=== PATIENT | female | born 1965 | race African-American/Black ===

== ENCOUNTER 2020-02-23 11:28 | Emergency (ER) | payer OTHER, MEDICAID ==
[~2020-02-23] VITALS: Ht 160 cm; Wt 113.4 kg
[2020-02-23 11:53] VITALS: BP 150/82
[2020-02-23] MEDS ORDERED: HYDROcodone-ACET 5/325MG TAB PO ONE (13:00)
== END 2020-02-23 13:57 | disposition home or self-care (01) ==
LOC: EDBD 11:28 → ER 11:28
DX: M79.10 Myalgia, unspecified site (principal); M54.5 Low back pain; M25.512 Pain in left shoulder; J45.909 Unspecified asthma, uncomplicated; I10 Essential (primary) hypertension; Z88.1 Allergy status to other antibiotic agents; V49.9XXA Car occupant (driver) (passenger) injured in unspecified traffic accident, initial encounter; Y93.89 Activity, other specified; Y92.89 Other specified places as the place of occurrence of the external cause; Y99.8 Other external cause status
CPT/HCPCS: 72100; 73502

== ENCOUNTER 2020-10-05 19:14 | Inpatient (IN) | payer MEDICAID ==
[~2020-10-05] VITALS: Ht 162.6 cm; Wt 102.5 kg
[2020-10-05] MEDS ORDERED: DIPHENOXYLATE W/ATROPINE 2.5 MG TAB PO ONE (20:30)
[2020-10-05] MEDS ORDERED: DexAMETHasone INJECTION 10 MG in D5W 5% 50 ML IV ONE (20:30)
[2020-10-05] MEDS ORDERED: ACETAMINOPHEN 500 MG TAB PO ONE (21:00)
[2020-10-05] MEDS ORDERED: ONDANSETRON ODT 4 MG TAB PO ONE (21:45)
[2020-10-05 22:56] LABS: Basophils # (auto) 0 10 ^3/uL (0-0.2); Eosinophils # (auto) 0 10 ^3/uL (0-0.8); Hemoglobin 11.7 g/dL (12.2-16.2); Lymphocytes # (auto) 0.6 10 ^3/uL (0.4-5.4); Monocytes # (auto) 0.4 10 ^3/uL (0-1.3); Monocytes % (auto) 6.5 % (0.0-12.0); Neutrophils # (auto) 5.4 10 ^3/uL (1.6-8.6); Platelet Count (auto) 191 10^3/uL (140-450); White Blood Cell 6.5 10^3/uL (4.4-10.8)
[2020-10-05 22:57] LABS: Basophils % (auto) 0.1 % (0.0-2.0); Hematocrit 36.6 % (36.0-46.0); Lymphocytes % (auto) 9.9 % (10.0-50.0); Mean Corpuscular Hgb Conc. 31.9 g/dL (32.0-36.0); Mean Corpuscular Volume 81.6 fL (80.0-100.0); Neutrophils % (auto) 83.5 % (37.0-80.0); Red Blood Cells 4.48 10^6/uL (4.0-5.20); Red Cell Distribution Width 16.5 % (11.8-14.3)
[2020-10-05 23:15] LABS: INR 1.03 (0.9-1.15)
[2020-10-05 23:30] LABS: Anion Gap 8 (5-15); Blood Urea Nitrogen 11 mg/dL (7-18); Calcium 8.3 mg/dL (8.5-10.1); Carbon Dioxide 23 mmol/L (21-32); Chloride 109 mmol/L (98-107); Glucose 95 mg/dL (74-106); Magnesium 2.3 mg/dL (1.6-2.6); Sodium 140 mmol/L (136-145)
[2020-10-05 23:39] LABS: Alanine Aminotransferase 45 U/L (13-56); Alkaline Phosphatase 80 U/L (45-117); Aspartate Aminotransferase 32 U/L (15-37); BUN/Creatinine Ratio 12.8; Bilirubin, Total 0.5 mg/dL (0.2-1.0); CRP High Sensitivity 7.13 mg/dL (< 0.3); GFR African American 88 mL/min; GFR Non-African American 73 mL/min; Lactate Dehydrogenase 308 U/L (84-246); Total Protein 7.6 g/dL (6.4-8.2)
[2020-10-06] MEDS ORDERED: hydrALAZINE HCL 20 MG/ML VL IV PRN (10:30)
[2020-10-06] MEDS ORDERED: REMDESIVIR PER PHARMACY IV SCH (10:30)
[2020-10-06] MEDS ORDERED: ACETAMINOPHEN 500 MG TAB PO PRN (10:30)
[2020-10-06] MEDS ORDERED: NITROGLYCERIN 0.4 MG SL TAB SL PRN (10:30)
[2020-10-06] MEDS ORDERED: MORPHINE SULF INJ 2 MG/ML SYRINGE 1ML IV PRN (10:30)
[2020-10-06] MEDS ORDERED: POTASSIUM EFFERVESENT TAB 25 MEQ PO ONE (10:30)
[2020-10-06] MEDS: DOXYCYCLINE 100MG/250ML 250 ML IV SCH (13:00)
[2020-10-06] MEDS: ALBUTEROL SULF HFA 90MCG INH 200DOSE IN SCH ×2 (15:15→22:05)
[2020-10-06] MEDS ORDERED: PANT20TA59 PO (16:02)
[2020-10-06] MEDS ORDERED: MONT10TA34 PO (16:02)
[2020-10-06] MEDS ORDERED: TOPI50TA53 PO (16:02)
[2020-10-06] MEDS ORDERED: ALBUAER3 IN (16:02)
[2020-10-06] MEDS ORDERED: OXYB5TAB61 PO (16:02)
[2020-10-06] MEDS ORDERED: HYDR-4833 PO (16:02)
[2020-10-06] MEDS ORDERED: ESCI20TA51 PO (16:02)
[2020-10-06] MEDS: ONDANSETRON HCL 4 MG/2 ML VIAL IV PRN (18:24)
[2020-10-06] MEDS ORDERED: PANT40T PO (18:25)
[2020-10-06] MEDS ORDERED: DICL1GEL50 TD (18:30)
[2020-10-06] MEDS ORDERED: ONDA-155 PO (18:30)
[2020-10-06] MEDS ORDERED: CYCL10TA6 PO (18:30)
[2020-10-06] MEDS ORDERED: ACET300T2 PO (18:30)
[2020-10-06] MEDS ORDERED: GABA100C9 PO (18:30)
[2020-10-06] MEDS ORDERED: VENL37.511 PO (18:30)
[2020-10-06] MEDS ORDERED: METH4TAB7 PO (18:30)
[2020-10-06] MEDS ORDERED: HYDR-4924 PO (18:30)
[2020-10-06] MEDS ORDERED: CLIN150C7 PO (18:30)
[2020-10-06] MEDS ORDERED: ELET20TA2 PO (18:30)
[2020-10-06] MEDS: BUDESONIDE (INHALATION) 180 MCG IH IN SCH (22:05)
[2020-10-06] MEDS: HYDROcodone-ACET 5/325MG TAB PO PRN (22:20)
[2020-10-07] VITALS (9 sets, daily range): BP systolic 110–147; BP diastolic 58–80
[2020-10-07] MEDS: DOXYCYCLINE 100MG/250ML 250 ML IV SCH ×2 (00:35→13:09)
[2020-10-07] MEDS: ACETAMINOPHEN 500 MG TAB PO PRN (01:22)
[2020-10-07] MEDS: ALBUTEROL SULF HFA 90MCG INH 200DOSE IN SCH ×3 (06:00→20:38)
[2020-10-07 06:39] LABS: Basophils # (auto) 0 10 ^3/uL (0-0.2); Basophils % (auto) 0.1 % (0.0-2.0); Eosinophils # (auto) 0 10 ^3/uL (0-0.8); Hemoglobin 11.2 g/dL (12.2-16.2); Monocytes # (auto) 0.6 10 ^3/uL (0-1.3); Neutrophils # (auto) 3.4 10 ^3/uL (1.6-8.6); White Blood Cell 4.8 10^3/uL (4.4-10.8)
[2020-10-07 06:43] LABS: Hematocrit 35.1 % (36.0-46.0); Lymphocytes # (auto) 0.9 10 ^3/uL (0.4-5.4); Lymphocytes % (auto) 17.8 % (10.0-50.0); Mean Corpuscular Hemoglobin 25.9 pg (28.0-32.0); Mean Corpuscular Hgb Conc. 31.9 g/dL (32.0-36.0); Mean Corpuscular Volume 81.4 fL (80.0-100.0); Monocytes % (auto) 12.2 % (0.0-12.0); Neutrophils % (auto) 69.9 % (37.0-80.0); Nucleated Red Blood Cells % 0.1 %; Platelet Count (auto) 206 10^3/uL (140-450); Red Blood Cells 4.31 10^6/uL (4.0-5.20); Red Cell Distribution Width 15.9 % (11.8-14.3)
[2020-10-07 07:21] LABS: Albumin 2.7 g/dL (3.4-5.0); BUN/Creatinine Ratio 22.2; Bilirubin, Total 0.4 mg/dL (0.2-1.0); Calcium 8.5 mg/dL (8.5-10.1)
[2020-10-07] MEDS: ONDANSETRON HCL 4 MG/2 ML VIAL IV PRN ×2 (09:11→17:56)
[2020-10-07] MEDS: DexAMETHasone SOD PHOS 10MG/1ML VIAL INJ IV SCH (09:40)
[2020-10-07] MEDS: ZINC SULFATE 220mg CAP or TAB PO SCH (09:41)
[2020-10-07] MEDS: ASCORBIC ACID 1,000 MG TAB PO SCH (09:41)
[2020-10-07] MEDS: CHOLECALCIFEROL (VITD3) 2,000 UNIT CAP PO SCH (09:41)
[2020-10-07] MEDS: ENOXAPARIN SOD 40 MG/0.4 ML SYRINGE SC SCH (09:41)
[2020-10-07] MEDS: FAMOTIDINE 20 MG TAB PO SCH (09:41)
[2020-10-07] MEDS: BUDESONIDE (INHALATION) 180 MCG IH IN SCH ×2 (10:04→20:38)
[2020-10-07] MEDS: HYDROcodone-ACET 5/325MG TAB PO PRN (16:54)
--- NOTE | 2020-10-07 21:45 | NUR ---
Telemetry admit from [facility] admitted to Telemetry unit. Patient oriented to Allie Lopez, RN primary RN, unit, room, bed, and unit policies regarding patient care and visiting hours. Patient now on continuous telemetry monitoring, tele box #[id number] and telemetry reading on arrival to unit is SR. Patient placed on bedside oxygen 2L NC, weighed by bedscale and encouraged to call if they need something. All questions and concerns addressed, patient verbalized understanding. Fall and safety precautions in place. Call light within reach.
[2020-10-07] MEDS: MORPHINE SULF INJ 2 MG/ML SYRINGE 1ML IV PRN (22:49)
--- NOTE | 2020-10-07 23:30 | NUR ---
IV insertion IV access obtained, via clean sterile technique by inserting 20 gauge catheter at LAC after first attempt. IV secured properly. No trauma to site. Patient tolerated well. IV insertion IV access obtained, via clean sterile technique by inserting 20 gauge catheter at LFA after first attempt. IV secured properly. No trauma to site. Patient tolerated well. IV removal IV DC'd with clean sterile technique, catheter fully intact. Pressure dressing applied to site. Patient tolerated well. NOTE: LAC 20g removed due to leaking
[2020-10-08] MEDS: DOXYCYCLINE 100MG/250ML 250 ML IV SCH ×2 (01:00→13:00)
[2020-10-08 02:02] LABS: Urine Bacteria NONE SEEN /hpf (None Seen); Urine Blood Negative /uL (Negative); Urine Mucus FEW (None Seen); Urine Specific Gravity 1.024 (1.001-1.035); Urine WBC 2 /hpf (0 - 5)
[2020-10-08] MEDS: MORPHINE SULF INJ 2 MG/ML SYRINGE 1ML IV PRN ×2 (03:24→15:00)
[2020-10-08 05:00] VITALS: BP 131/67
[2020-10-08] MEDS: ALBUTEROL SULF HFA 90MCG INH 200DOSE IN SCH (06:24)
[2020-10-08] MEDS: BUDESONIDE (INHALATION) 180 MCG IH IN SCH ×2 (06:24→20:16)
[2020-10-08] MEDS: HYDROcodone-ACET 5/325MG TAB PO PRN (06:27)
[2020-10-08 08:38] VITALS: BP 113/65
[2020-10-08] MEDS: DexAMETHasone SOD PHOS 10MG/1ML VIAL INJ IV SCH (10:23)
[2020-10-08] MEDS: FAMOTIDINE 20 MG TAB PO SCH (10:24)
[2020-10-08] MEDS: ENOXAPARIN SOD 40 MG/0.4 ML SYRINGE SC SCH (10:24)
[2020-10-08] MEDS: CHOLECALCIFEROL (VITD3) 2,000 UNIT CAP PO SCH (10:24)
[2020-10-08] MEDS: ASCORBIC ACID 1,000 MG TAB PO SCH (10:24)
[2020-10-08] MEDS: ZINC SULFATE 220mg CAP or TAB PO SCH (10:24)
[2020-10-08] MEDS ORDERED: ALBUTEROL SULF HFA 90MCG INH 200DOSE IN PRN (10:30)
[2020-10-08 12:53] VITALS: BP 119/77
[2020-10-08] MEDS ORDERED: CYCLOBENZAPRINE HCL 10 MG TAB PO PRN (13:15)
[2020-10-08] MEDS: GABAPENTIN 100 MG CAP PO SCH ×2 (14:05→22:00)
--- NOTE | 2020-10-08 14:12 | NUR ---
10/08/20 1400 Faxed to [facility] at [phone] face sheet, order for transfer to [facility] to med-surg bed, H/P, labs, meds, imaging. Pending review and bed availability.
--- NOTE | 2020-10-08 15:17 | NUR ---
IV insertion IV access obtained, via clean sterile technique by inserting 22 gauge catheter at HARI after 3 attempts. IV secured properly. No trauma to site. Patient tolerated well. NO
--- NOTE | 2020-10-08 15:18 | NUR ---
IV removal LAC IV DC'd with clean sterile technique, catheter fully intact. Pressure dressing applied to site. Patient tolerated well. NOTE: IV painful to patient while flushing IV removal LFA IV DC'd with clean sterile technique, catheter fully intact. Pressure dressing applied to site. Patient tolerated well. NOTE: IV dc'd d/t leaking
--- NOTE | 2020-10-08 16:17 | NUR ---
1615 10/09/20 - Contacted [facility] at [phone], requesting authorization for continued inpatient stay. Spoke with transportation analyst Murray who provided authorization [id number] for inpatient stay. Murray also stated family service caseworker Charles assigned to patient today is working on pending transfer of patient to a [place] facility. Murray requested copies of all required documentation accompany patient to include imaging on a disk.
[2020-10-08 16:58] VITALS: BP 123/74
[2020-10-08] MEDS ORDERED: REMDESIVIR 200 MG in NS 210ml LOADING DOSE ADULT IV ONE (17:00)
--- NOTE | 2020-10-08 18:10 | NUR ---
Remdesivir loading dose start vs: 130/79, HR:63BPM, 96% 15 min post: 125/83, HR:62BPM, 98% POST: 148/75, 59PM, 96%
--- NOTE | 2020-10-08 18:52 | NUR ---
Received call from Maisha with [facility], per Maisha patient has been accepted to [facility] to Room #3116b [phone] Accepting [facility] Faxed checked list received and imaging CD ordered. Addendum: 10/08/20 at 1855 by TAMIKA BORGES RN RN phone #: [phone]
--- NOTE | 2020-10-08 18:55 | NUR ---
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
--- NOTE | 2020-10-08 19:05 | NUR ---
Attempted to call report to [phone], spoke to Leisa, per Leisa, RNs are in middle of report and asked for report to be called in in 40-45 more min. 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 Report and handoff endorsed to [facility] RN Fabio.
--- NOTE | 2020-10-08 19:34 | NUR ---
Notified Zoë, patient's daughter of impending transfer.
--- NOTE | 2020-10-08 19:51 | NUR ---
Report given to FRANCESCO Chou at [facility].
[2020-10-08] MEDS: ACETAMINOPHEN 500 MG TAB PO PRN (20:06)
--- NOTE | 2020-10-08 21:05 | NUR ---
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
[2020-10-08] MEDS ORDERED: MONTELUKAST SODIUM 10 MG TAB PO SCH (22:00)
[2020-10-08] MEDS ORDERED: TOPIRAMATE 100 MG TAB PO SCH (22:00)
[2020-10-08] MEDS ORDERED: OXYBUTYNIN CHL 5 MG TAB PO SCH (22:00)
--- NOTE | 2020-10-08 22:42 | NUR ---
Patient picked up by [facility] for transport All questions and concerns addressed. Patient verbalized understanding. Telemetry unit returned to ICU. Patient taken to vehicle via gurney with all personal belongings, accompanied by [facility] staff. No distress noted at time of departure.
[2020-10-09] MEDS ORDERED: VENLAFAXINE HCL 37.5mg XR cap PO SCH (10:00)
[2020-10-09] MEDS ORDERED: REMDESIVIR 100 MG in SODIUM CHL 0.9% 250 ML IV SCH (17:00)
== END 2020-10-08 22:42 | disposition short-term general hospital (02) | DRG 137 ==
LOC: EDBD 19:14 → ER 19:30 → TELE 10-06 10:28 → TELE-CENTR 10-07 21:45
PROVIDERS: ADMIT Emergency Medicine; ATTEND Emergency Medicine
PROC: XW13325 Transfusion of Convalescent Plasma (Nonautologous) into Peripheral Vein, Percutaneous Approach, New Technology Group 5 (ICD-10-PCS; principal; 2020-10-07)
PROC: XW033E5 Introduction of Remdesivir Anti-infective into Peripheral Vein, Percutaneous Approach, New Technology Group 5 (ICD-10-PCS; 2020-10-08)
DX: U07.1 COVID-19 (principal); J12.89 Other viral pneumonia; J96.01 Acute respiratory failure with hypoxia; E66.9 Obesity, unspecified; E87.6 Hypokalemia; D68.59 Other primary thrombophilia; I10 Essential (primary) hypertension; Z68.38 Body mass index [BMI] 38.0-38.9, adult; F32.9 Major depressive disorder, single episode, unspecified; G89.29 Other chronic pain; J45.909 Unspecified asthma, uncomplicated; M19.90 Unspecified osteoarthritis, unspecified site; Z90.710 Acquired absence of both cervix and uterus; Z96.649 Presence of unspecified artificial hip joint; Z96.659 Presence of unspecified artificial knee joint
CPT/HCPCS: 36415; 36600; 71045; 80053; 81001; 82728; 82805; 83605; 83615; 83735; 83880; 84484; 85025; 85379; 85610; 85730; 86141; 86850; 86900; 86901; 87040; 87081; 87426; 94640; 96365; G0378; J1100; J2405; J3490; J7060; Q0162